=== PATIENT | male | born 1965 | race Caucasian/White ===

== ENCOUNTER 2017-10-07 20:11 | Emergency (ER) | payer OTHER ==
[~2017-10-07] VITALS: Ht 175.3 cm; Wt 72.6 kg
[~2017-10-07 20:11] MED LIST: BUSPIRONE HCL15 MG PO
== END 2017-10-07 22:11 | disposition home or self-care (01) ==
LOC: ED 20:11
PROC: 0HQGXZZ Repair Left Hand Skin, External Approach (ICD-10-PCS; principal; 2017-10-07)
DX: S61.211A Laceration without foreign body of left index finger without damage to nail, initial encounter (principal); F41.9 Anxiety disorder, unspecified; F17.200 Nicotine dependence, unspecified, uncomplicated; Z23 Encounter for immunization; Z79.899 Other long term (current) drug therapy; W22.8XXA Striking against or struck by other objects, initial encounter
CPT/HCPCS: 12001; 90471; 90715; 99282

== ENCOUNTER 2020-09-08 06:08 | Emergency (ER) | payer SELFPAY ==
[~2020-09-08] VITALS: Ht 175.3 cm; Wt 83.9 kg
[2020-09-08] MEDS ORDERED: ACETAMINOPHEN500 MG PO (06:25)
[2020-09-08] MEDS ORDERED: CYCLOBENZAPRINE10 MG PO (06:43)
== END 2020-09-08 08:05 | disposition home or self-care (01) ==
LOC: ED 06:08
DX: M54.41 Lumbago with sciatica, right side (principal); F17.200 Nicotine dependence, unspecified, uncomplicated; Z88.7 Allergy status to serum and vaccine
CPT/HCPCS: 99283

== ENCOUNTER 2025-06-02 14:01 | Emergency (ER) | payer OTHER ==
[~2025-06-02] VITALS: Ht 175.3 cm; Wt 79.0 kg
[~2025-06-02 14:01] MED LIST changes: +ACETAMINOPHEN500 MG PO; +CYCLOBENZAPRINE10 MG PO
[2025-06-02] MEDS ORDERED: NITROGLYCERIN 0.4 MG SUBL SL PRN (14:15)
[2025-06-02] MEDS ORDERED: ASPIRIN 81 MG CHEW PO ONE (14:15)
[2025-06-02 14:28] LABS: BASOPHILS 1.3 % (0.2-1.2); EOSINOPHILS 7.2 % (0.8-7.0); LYMPHOCYTES 28.2 % (21.8-53.1); MCH 30.0 PG (25.7-32.2); MCHC 34.0 g/dL (32.3-36.5); MCV 88.2 fL (79.0-92.2); MONOCYTES 8.9 % (5.3-12.2); NEUTROPHILS 54.1 % (34.0-67.9); RBC 4.93 M/uL (4.63-6.08)
[2025-06-02 15:10] LABS: ALT (SGPT) 23.0 U/L (14-59); AST (SGOT) 17.0 U/L (15-37); GLOMERULAR FILTRATION RATE,EST 99.0 mL/min (>60); PROTEIN, TOTAL 7.7 g/dL (6.4-8.2); UREA NITROGEN 14.0 mg/dL (7-18)
[2025-06-02 16:58] VITALS: BP 153/98
--- NOTE | 2025-06-03 13:57 | EKG ---
[facility] [address] [facility] [place], [place] [address] Signed Normal sinus rhythm Normal ECG No previous ECGs available Confirmed by Bebeto Arndt DO ([id number]) on 06/03/2025 1:57:03 PM Electronically Signed By: BEBETO ARNDT DO 06/03/25 1357 PATIENT NAME: FRAN NEWELL Electrocardiogram DATE OF : 63 PHYSICIAN: BEBETO ARNDT DO REPORT #: [id number] REPORT IS CONFIDENTIAL AND NOT TO BE RELEASED WITHOUT AUTHORIZATION
== END 2025-06-02 17:00 | disposition home or self-care (01) ==
LOC: ED 14:01
PROVIDERS: Emergency Medicine
DX: R07.89 Other chest pain (principal); F17.200 Nicotine dependence, unspecified, uncomplicated; Z88.7 Allergy status to serum and vaccine
CPT/HCPCS: 36415; 71045; 80053; 83735; 84484; 85025; 93005; 93010; 99285-25; A9270